=== PATIENT | male | born 1985 | race Caucasian/White ===

== ENCOUNTER 2023-07-15 13:48 | Emergency (ER) | payer SELFPAY ==
[2023-07-15] MEDS ORDERED: Cephalexin 500 MG Cap PO ONE (16:17)
[2023-07-15] MEDS ORDERED: Sulfamethoxazole/Trimethoprim 800-160 MG Tab PO ONE (16:18)
[2023-07-15] MEDS ORDERED: Propofol 200 MG/20 ML SDV ONE ×2 (18:52→19:01)
[2023-07-15] MEDS ORDERED: Sodium Chloride 0.9% 1,000 ML IV ONE (18:56)
[2023-07-15] MEDS ORDERED: Propofol 200 MG/20 ML SDV IVPUSH ONE (18:56)
[2023-07-15] MEDS ORDERED: ceFAZolin 1 GM in Sodium Chloride 0.9% 50 ML IV ONE (19:10)
[2023-07-15] MEDS ORDERED: Sodium Chloride 0.9% 10 ML Syringe FLUSH PRN (19:11)
[2023-07-15] MEDS ORDERED: Sodium Chloride 0.9% 2.5 ML Syringe FLUSH PRN (19:11)
[2023-07-15] MEDS ORDERED: Ketorolac 30 MG/ML SDV IVPUSH ONE (19:22)
[2023-07-15 19:34] LABS: BASOPHILS ABSOLUTE AUTO 0.06 K/uL (0.00-0.20); BASOPHILS PERCENT AUTO 0.5 % (0.0-1.0); EOSINOPHILS ABSOLUTE AUTO 0.07 K/uL (0.00-0.45); EOSINOPHILS PERCENT AUTO 0.6 % (0.0-6.0); HEMATOCRIT 37.4 % (42.0-52.0); HEMOGLOBIN 12.9 g/dL (14.0-18.0); IMMATURE GRAN ABSOLUTE AUTO 0.05 K/uL (0.00-0.05); IMMATURE GRAN PERCENT AUTO 0.4 % (0.0-0.4); LYMPHOCYTES ABSOLUTE AUTO 1.54 K/uL (1.00-4.80); LYMPHOCYTES PERCENT AUTO 12.1 % (24.0-44.0); MEAN CORPUSCULAR HEMOGLOBIN 31.1 pg (28.0-32.0); MEAN CORPUSCULAR HGB CONC 34.5 g/dL (32.0-36.0); MEAN CORPUSCULAR VOLUME 90.1 fL (83.0-99.0); MEAN PLATELET VOLUME 9.3 fL (9.4-12.4); MONOCYTES ABSOLUTE AUTO 0.99 K/uL (0.00-0.80); MONOCYTES PERCENT AUTO 7.8 % (0.0-8.0); NEUTROPHILS ABSOLUTE AUTO 9.97 K/uL (1.80-7.70); NEUTROPHILS PERCENT AUTO 78.6 % (41.0-71.0); PLATELET COUNT,PLT 259 K/uL (150-400); RED BLOOD CELL COUNT 4.15 M/uL (4.52-5.90); WHITE BLOOD CELL COUNT,WBC 12.68 K/uL (3.9-11.3)
[2023-07-15 20:04] LABS: A/G RATIO 1.1 (0.9-1.6); ALBUMIN 3.7 g/dL (3.4-5.0); BILIRUBIN TOTAL 0.3 mg/dL (0.2-1.0); CALCIUM 8.5 mg/dL (8.5-10.1); CARBON DIOXIDE,CO2 27.1 mmol/L (21.0-32.0); EST CRCL DRUG DOSING (CG) 109.81 mL/min; POTASSIUM,K 3.9 mmol/L (3.5-5.1); PROTEIN TOTAL,TP 7.1 g/dL (6.4-8.2)
[2023-07-15 20:09] LABS: LACTIC ACID 1.4 mmol/L (0.4-2.0)
[2023-07-15] MEDS ORDERED: Ibuprofen 600 MG Tab PO ONE (20:24)
[2023-07-15 23:10] VITALS: BP 130/80; PULSE 82
== END 2023-07-15 20:35 | disposition home or self-care (01) ==
LOC: MW.ED 13:48
DX: L02.416 Cutaneous abscess of left lower limb (principal); K21.9 Gastro-esophageal reflux disease without esophagitis; Z79.899 Other long term (current) drug therapy
CPT/HCPCS: 36415; 80053; 83605; 85025; 96365; 96375; 99283; A9270; J0690; J1885; J2704; J3490; J7030

== ENCOUNTER 2023-07-17 14:51 | Emergency (ER) | payer BC ==
[2023-07-17 15:42] VITALS: BP 116/68
[2023-07-17 15:59] VITALS: PULSE 80
== END 2023-07-17 15:55 | disposition home or self-care (01) ==
LOC: MW.ED 14:51
DX: L03.116 Cellulitis of left lower limb (principal); K21.9 Gastro-esophageal reflux disease without esophagitis; Z79.899 Other long term (current) drug therapy; Z88.5 Allergy status to narcotic agent
CPT/HCPCS: 99282

== ENCOUNTER 2023-07-19 08:39 | Emergency (ER) | payer BC ==
[2023-07-19 09:10] VITALS: BP 129/89; PULSE 75
== END 2023-07-19 09:09 | disposition home or self-care (01) ==
LOC: MW.ED 08:39
DX: L02.416 Cutaneous abscess of left lower limb (principal)
CPT/HCPCS: 99282

== ENCOUNTER 2023-07-25 22:16 | Emergency (ER) | payer BC ==
[2023-07-25] MEDS ORDERED: Sodium Chloride 0.9% 1,000 ML IV ONE (22:39)
[2023-07-25 23:39] LABS: CORONAVIRUS COVID-19 NAA NEGATIVE (NEGATIVE); INFLUENZA A NAA NEGATIVE (NEGATIVE); INFLUENZA B NAA NEGATIVE (NEGATIVE)
[2023-07-25 23:50] LABS: BASOPHILS ABSOLUTE AUTO 0.06 K/uL (0.00-0.20); BASOPHILS PERCENT AUTO 0.5 % (0.0-1.0); EOSINOPHILS PERCENT AUTO 0.8 % (0.0-6.0); HEMATOCRIT 40.1 % (42.0-52.0); HEMOGLOBIN 13.9 g/dL (14.0-18.0); IMMATURE GRAN ABSOLUTE AUTO 0.08 K/uL (0.00-0.05); IMMATURE GRAN PERCENT AUTO 0.6 % (0.0-0.4); LYMPHOCYTES PERCENT AUTO 3.2 % (24.0-44.0); MEAN CORPUSCULAR HEMOGLOBIN 30.5 pg (28.0-32.0); MEAN CORPUSCULAR HGB CONC 34.7 g/dL (32.0-36.0); MEAN CORPUSCULAR VOLUME 88.1 fL (83.0-99.0); MEAN PLATELET VOLUME 9.5 fL (9.4-12.4); MONOCYTES ABSOLUTE AUTO 0.86 K/uL (0.00-0.80); MONOCYTES PERCENT AUTO 6.9 % (0.0-8.0); NEUTROPHILS ABSOLUTE AUTO 10.98 K/uL (1.80-7.70); PLATELET COUNT,PLT 255 K/uL (150-400); RED BLOOD CELL COUNT 4.55 M/uL (4.52-5.90); WHITE BLOOD CELL COUNT,WBC 12.48 K/uL (3.9-11.3)
[2023-07-26] LABS: ALBUMIN 3.9 g/dL (3.4-5.0); BILIRUBIN TOTAL 0.6 mg/dL (0.2-1.0); CALCIUM 9.2 mg/dL (8.5-10.1); CARBON DIOXIDE,CO2 25.1 mmol/L (21.0-32.0); CREATININE 1.3 mg/dL (0.8-1.3); EST CRCL DRUG DOSING (CG) 84.47 mL/min; POTASSIUM,K 4.3 mmol/L (3.5-5.1)
[2023-07-26] MEDS ORDERED: Iopamidol 755 MG/ML 500 ML Multipack Bottle IVPUSH ONE (00:41)
[2023-07-26 01:58] VITALS: BP 117/67; PULSE 90
== END 2023-07-26 01:53 | disposition home or self-care (01) ==
LOC: MW.ED 22:16
DX: B34.9 Viral infection, unspecified (principal); K21.9 Gastro-esophageal reflux disease without esophagitis; Z20.822 Contact with and (suspected) exposure to COVID-19; Z79.899 Other long term (current) drug therapy; Z88.5 Allergy status to narcotic agent
CPT/HCPCS: 0240U; 36415; 71045; 71275; 80053; 83605; 85025; 85379; 96360; 99284; J7030; Q9967

== ENCOUNTER 2023-07-29 13:45 | Observation (INO) | payer BC ==
[2023-07-29] MEDS ORDERED: Aspirin 81 MG Tab.Chew PO ONE (13:54)
[2023-07-29] MEDS ORDERED: Enoxaparin 100 MG/1 ML Syringe SUBCUT STA (14:04)
[2023-07-29] MEDS ORDERED: Iopamidol 755 MG/ML 500 ML Multipack Bottle IVPUSH STA (14:14)
[2023-07-29 14:49] LABS: BASOPHILS ABSOLUTE AUTO 0.04 K/uL (0.00-0.20); BASOPHILS PERCENT AUTO 0.5 % (0.0-1.0); EOSINOPHILS ABSOLUTE AUTO 0.12 K/uL (0.00-0.45); EOSINOPHILS PERCENT AUTO 1.6 % (0.0-6.0); HEMATOCRIT 33.9 % (42.0-52.0); HEMOGLOBIN 11.7 g/dL (14.0-18.0); IMMATURE GRAN ABSOLUTE AUTO 0.02 K/uL (0.00-0.05); IMMATURE GRAN PERCENT AUTO 0.3 % (0.0-0.4); LYMPHOCYTES ABSOLUTE AUTO 1.74 K/uL (1.00-4.80); LYMPHOCYTES PERCENT AUTO 23.6 % (24.0-44.0); MEAN CORPUSCULAR HEMOGLOBIN 30.8 pg (28.0-32.0); MEAN CORPUSCULAR HGB CONC 34.5 g/dL (32.0-36.0); MEAN CORPUSCULAR VOLUME 89.2 fL (83.0-99.0); MEAN PLATELET VOLUME 9.3 fL (9.4-12.4); MONOCYTES ABSOLUTE AUTO 0.66 K/uL (0.00-0.80); NEUTROPHILS ABSOLUTE AUTO 4.79 K/uL (1.80-7.70); PLATELET COUNT,PLT 297 K/uL (150-400); WHITE BLOOD CELL COUNT,WBC 7.37 K/uL (3.9-11.3)
[2023-07-29 14:59] LABS: INR 1.08 (0.86-1.11); PTT,PARTIAL THROMBOPLSTIN TIME 34.4 SEC (23.9-30.7)
[2023-07-29 15:20] LABS: A/G RATIO 0.8 (0.9-1.6); ALBUMIN 3.2 g/dL (3.4-5.0); BILIRUBIN TOTAL 0.4 mg/dL (0.2-1.0); CALCIUM 8.5 mg/dL (8.5-10.1); CARBON DIOXIDE,CO2 29.2 mmol/L (21.0-32.0); CREATININE 0.8 mg/dL (0.8-1.3); EST CRCL DRUG DOSING (CG) 137.27 mL/min; POTASSIUM,K 3.7 mmol/L (3.5-5.1); PROTEIN TOTAL,TP 7.2 g/dL (6.4-8.2)
[2023-07-29] MEDS ORDERED: Colchicine 0.6 MG Tab PO ONE (16:34)
[2023-07-29] MEDS ORDERED: Acetaminophen 500 MG Tab PO ONE (17:18)
[2023-07-29] MEDS ORDERED: Acetaminophen 325 MG Tab PO PRN (18:09)
[2023-07-29] MEDS ORDERED: Ondansetron 4 MG/2 ML SDV IVPUSH PRN (18:09)
[2023-07-29 19:19] LABS: CORONAVIRUS COVID-19 NAA NEGATIVE (NEGATIVE); INFLUENZA A NAA NEGATIVE (NEGATIVE); INFLUENZA B NAA NEGATIVE (NEGATIVE); RESPIRATORY SYNCYTIAL VIR NAA NEGATIVE (NEGATIVE)
[2023-07-29] MEDS: Ibuprofen 400 MG Tab PO SCH (20:08)
[2023-07-29] MEDS ORDERED: QUEtiapine 100 MG Tab PO SCH (21:00)
[2023-07-29] MEDS ORDERED: Nicotine 7 MG/24 Hr Patch TRDERM PRN (22:30)
[2023-07-29 23:19] LABS: AMPHETAMINES SCREEN, URINE NEGATIVE (CUTOFF=500); BARBITURATE SCREEN,URINE NEGATIVE (CUTOFF=200); BENZODIAZEPINES SCREEN,URINE NEGATIVE (CUTOFF=150); BUPRENORPHINE SCREEN,URINE NEGATIVE (CUTOFF=10); METHADONE SCREEN, URINE NEGATIVE (CUTOFF=200); METHAMPHETAMINES SCREEN, URINE NEGATIVE (CUTOFF=500); OXYCODONE SCREEN,URINE NEGATIVE (CUT0FF=100); PCP SCREEN,URINE NEGATIVE (CUTOFF=25); THC SCREEN,URINE 20 NG/ML NEGATIVE (CUTOFF=50)
[2023-07-30] MEDS: Ibuprofen 400 MG Tab PO SCH ×2 (03:02→10:43)
[2023-07-30 05:46] LABS: BASOPHILS ABSOLUTE AUTO 0.06 K/uL (0.00-0.20); EOSINOPHILS ABSOLUTE AUTO 0.21 K/uL (0.00-0.45); EOSINOPHILS PERCENT AUTO 3.5 % (0.0-6.0); HEMATOCRIT 33.9 % (42.0-52.0); HEMOGLOBIN 11.4 g/dL (14.0-18.0); IMMATURE GRAN ABSOLUTE AUTO 0.04 K/uL (0.00-0.05); IMMATURE GRAN PERCENT AUTO 0.7 % (0.0-0.4); LYMPHOCYTES ABSOLUTE AUTO 2.23 K/uL (1.00-4.80); LYMPHOCYTES PERCENT AUTO 36.7 % (24.0-44.0); MEAN CORPUSCULAR HEMOGLOBIN 30.2 pg (28.0-32.0); MEAN CORPUSCULAR HGB CONC 33.6 g/dL (32.0-36.0); MEAN CORPUSCULAR VOLUME 89.7 fL (83.0-99.0); MEAN PLATELET VOLUME 9.1 fL (9.4-12.4); MONOCYTES ABSOLUTE AUTO 0.46 K/uL (0.00-0.80); MONOCYTES PERCENT AUTO 7.6 % (0.0-8.0); NEUTROPHILS ABSOLUTE AUTO 3.08 K/uL (1.80-7.70); NEUTROPHILS PERCENT AUTO 50.5 % (41.0-71.0); PLATELET COUNT,PLT 306 K/uL (150-400); RED BLOOD CELL COUNT 3.78 M/uL (4.52-5.90); WHITE BLOOD CELL COUNT,WBC 6.08 K/uL (3.9-11.3)
[2023-07-30 06:13] LABS: A/G RATIO 0.8 (0.9-1.6); ALBUMIN 2.9 g/dL (3.4-5.0); BILIRUBIN TOTAL 0.3 mg/dL (0.2-1.0); C-REACTIVE PROTEIN 6.6 mg/dL (<0.3); CALCIUM 8.7 mg/dL (8.5-10.1); CARBON DIOXIDE,CO2 29.2 mmol/L (21.0-32.0); CREATININE 0.9 mg/dL (0.8-1.3); EST CRCL DRUG DOSING (CG) 122.01 mL/min; POTASSIUM,K 3.8 mmol/L (3.5-5.1); PROTEIN TOTAL,TP 6.7 g/dL (6.4-8.2)
[2023-07-30] MEDS ORDERED: LORazepam 2 MG/ML SDV IVPUSH PRN (07:26)
[2023-07-30] MEDS: Colchicine 0.6 MG Tab PO SCH ×2 (08:31→08:39)
[2023-07-30] MEDS ORDERED: Enoxaparin 40 MG/0.4 ML Syringe SUBCUT SCH (09:00)
[2023-07-30 12:13] VITALS: BP 127/66; PULSE 80
== END 2023-07-30 12:11 | disposition home or self-care (01) ==
LOC: MW.ED 13:45 → MW.MS 17:58
PROVIDERS: ADMIT Family Medicine; ATTEND Family Medicine
DX: I51.4 Myocarditis, unspecified (principal); R07.81 Pleurodynia; R07.1 Chest pain on breathing; B34.9 Viral infection, unspecified; K21.9 Gastro-esophageal reflux disease without esophagitis; F31.9 Bipolar disorder, unspecified; Z20.822 Contact with and (suspected) exposure to COVID-19; Z87.891 Personal history of nicotine dependence; Z98.890 Other specified postprocedural states; Z79.899 Other long term (current) drug therapy; Z88.5 Allergy status to narcotic agent
CPT/HCPCS: 0241U; 36415; 71045; 71045-26; 71275; 71275-26; 80053; 80305-QW; 83735; 83880; 84484; 85025; 85610; 85652; 85730; 86140; 87040; 93005; 93010; 93306; 96372; 99222; 99239; 99284; 99285; A9270-GY; G0378; J1650; Q9967